=== PATIENT | female | born 1945 | race Caucasian/White ===

== ENCOUNTER → 2018-01-13 | Outpatient (CLI) | payer MEDICARE, BC | LOC: COL.RAD 12:54 | DX: D43.0 Neoplasm of uncertain behavior of brain, supratentorial (principal); G93.6 Cerebral edema; Z98.890 Other specified postprocedural states ==

== ENCOUNTER 2018-03-17 10:15 | Outpatient (RCR) | payer MEDICARE, BC | END 2018-03-18 | disposition home or self-care (01) | LOC: WSPT | DX: Z48.3 Aftercare following surgery for neoplasm (principal); G81.94 Hemiplegia, unspecified affecting left nondominant side | CPT/HCPCS: G8978-GP; G8979-GP; G8987-GO; G8988-GO; G9168-GN; G9169-GN ==

== ENCOUNTER 2018-04-15 09:45 | Outpatient (RCR) | payer MEDICARE, BC | END 2018-06-17 | disposition home or self-care (01) | LOC: WSPT | DX: Z48.3 Aftercare following surgery for neoplasm (principal); R29.898 Other symptoms and signs involving the musculoskeletal system ==

== ENCOUNTER → 2018-04-15 | Outpatient (CLI) | payer MEDICARE, BC | LOC: COL.RAD 08:01 | DX: Z01.818 Encounter for other preprocedural examination (principal); D43.0 Neoplasm of uncertain behavior of brain, supratentorial; G93.6 Cerebral edema; Z98.890 Other specified postprocedural states | CPT/HCPCS: A9585 ==